=== PATIENT | male | born 1955 | race Caucasian/White ===

== ENCOUNTER 2019-11-27 17:03 | Emergency (ER) | payer OTHER ==
[2019-11-27] MEDS ORDERED: ONDANSETRON 4 MG/2 ML VIAL IVPUSH ONE (17:18)
[2019-11-27] MEDS ORDERED: SODIUM CHLORIDE 1,000 ML IV STA ×2 (17:18→18:59)
[2019-11-27] MEDS ORDERED: MECLIZINE HCL 25 MG TABLET (FP) PO ONE (17:19)
[2019-11-27] MEDS ORDERED: MECLIZINE HCL 25 MG TABLET (FP) ONE (17:22)
[2019-11-27] MEDS ORDERED: ONDANSETRON 4 MG/2 ML VIAL ONE (17:23)
[2019-11-27 17:43] VITALS: BP 142/86; PULSE 45; TEMP 98; BMI 20.9
[2019-11-27 17:56] LABS: BASO % 1.1 % (0-2.0); EOS % 1.9 % (0-4.5); HEMATOCRIT 39.8 % (35.4-49); HEMOGLOBIN 13.6 GM/dl (11.7-16.9); MCH 32.2 pg (25.7-33.7); MCHC 34.1 g/dl (32.0-35.9); MEAN CELL VOLUME 94.5 fl (80-96); MEAN PLT VOLUME 8.4 fl (7.5-11.1); MONO % 7.2 % (3.8-10.2); NEUT % 73.8 % (42.8-82.8); PLATELET COUNT 198 K/MM3 (134-434); RBC 4.22 M/mm3 (4.00-5.60); RDW 12.3 % (11.9-15.9)
[2019-11-27 18:04] LABS: ALBUMIN 3.9 g/dl (3.4-5.0); CALCIUM 9.2 mg/dl (8.5-10); CREATININE 0.7 mg/dl (0.55-1.3); POTASSIUM 3.7 mmol/L (3.5-5.1); TOT PROT 6.3 g/dl (6.4-8.2)
--- NOTE | 2019-11-27 18:08 | PDOC ---
Documentation entered by Chelsie Nicholson SCRIBE, acting as scribe for Mary Lee MD. Mary Lee MD: This documentation has been prepared by the Lyn mera Adrianna, SCRIBE, under my direction and personally reviewed by me in its entirety. I confirm that the documentation accurately reflects all work, treatment, procedures, and medical decision making performed by me. History of Present Illness - General Chief Complaint: Lightheaded Stated Complaint: VERTIGO Time Seen by Provider: 11/27/19 17:06 - History of Present Illness Initial Comments: 64 y.o male, PMH of vertigo and prostatitis (cipro), presents with dizziness since last night. Patient complains of sudden onset room-spinning dizziness that began last night. He notes the dizziness continued today upon waking up and has been persistent since. His symptoms are exacerbated with moving his head laterally (unaffected by moving his eyes), and the dizziness makes him feel nauseous. Patient notes he has had vertigo in the past, so he took meclizine today at 1 pm which typically alleviates his symptoms but it did not provide any relief today. He complains of an associated frontal MULLEN that radiates into his eyes, with photophobia which is new for him. Denies any identifiable triggers of vertigo. Patient notes he has been unable to get out of bed due to the persistent vertigo and MULLEN, so he came to the ED for further evaluation. Denies any SOB, chest pain, history of migraines, blurred vision, changes in vision, weakness, numbness, tingling, vomit. Allergies: NKA, NKDA Surgical History: Social History: Former smoker (quit >35 years ago). Denies toxic habits PCP: Dr. Hutchins Past History - Past Medical History Allergies/Adverse Reactions: Allergies Allergy/AdvReac Type Severity Reaction Status Date / Time No Known Allergies Allergy Verified 02/09/16 18:12 Home Medications: Ambulatory Orders Meclizine HCl [Antivert -] 25 mg PO QID PRN 11/27/19 Anemia: No Asthma: No Cancer: No Cardiac Disorders: No CVA: No COPD: No CHF: No Dementia: No Diabetes: No GI Disorders: No Disorders: Yes (HX PROSTATITIS) HTN: No Hypercholesterolemia: No Liver Disease: No Seizures: No Thyroid Disease: No Other medical history: VERTIGO - Surgical History Abdominal Surgery: No Appendectomy: No Cardiac Surgery: No Cholecystectomy: No Lung Surgery: No Neurologic Surgery: No Orthopedic Surgery: No - Immunization History Immunization Up to Date: Yes - Psycho Social/Smoking Cessation Hx Smoking Status: No Smoking History: Never smoked Have you smoked in the past 12 months: No Number of Cigarettes Smoked Daily: 40 If you are a former smoker, when did you quit?: 1982 Cigars Per Day: 0 Hx Alcohol Use: No Drug/Substance Use Hx: No Substance Use Type: None Hx Substance Use Treatment: No Review of Systems - Review of Systems Comments:: GENERAL/CONSTITUTIONAL: No fever or chills. No weakness. HEAD, EYES, EARS, NOSE AND THROAT: No change in vision. No ear pain or discharge. No sore throat. CARDIOVASCULAR: No chest pain or shortness of breath. RESPIRATORY: No cough, wheezing, or hemoptysis. GASTROINTESTINAL: +Nausea. No vomiting, diarrhea or constipation. GENITOURINARY: No dysuria, frequency, or change in urination. MUSCULOSKELETAL: No joint or muscle swelling or pain. No neck or back pain. SKIN: No rash NEUROLOGIC: +Frontal MULLEN. +Dizziness. +Vertigo. No loss of consciousness, or change in strength/sensation. ENDOCRINE: No increased thirst. No abnormal weight change. HEMATOLOGIC/LYMPHATIC: No anemia, easy bleeding, or history of blood clots. ALLERGIC/IMMUNOLOGIC: No hives or skin allergy. *Physical Exam - Vital Signs Last Vital Signs Temp Pulse Resp BP Pulse Ox 98.0 F 45 L 16 142/86 100 11/27/19 17:04 11/27/19 17:04 11/27/19 17:04 11/27/19 17:04 11/27/19 17:04 - Physical Exam GENERAL: +In a supine position in a dark room, avoiding movements of the head. Awake, alert, and fully oriented, in no acute distress HEAD: No signs of trauma EYES: PERRLA, EOMI, sclera anicteric, conjunctiva clear ENT: Auricles normal inspection, hearing grossly normal, nares patent, oropharynx clear without exudates. Moist mucosa NECK: Normal ROM, supple, no lymphadenopathy, JVD, or masses LUNGS: Breath sounds equal, clear to auscultation bilaterally. No wheezes, and no crackles HEART: Regular rate and rhythm, normal S1 and S2, no murmurs, rubs or gallops ABDOMEN: Soft, nontender, normoactive bowel sounds. No guarding, no rebound. No masses EXTREMITIES: Normal range of motion, no edema. No clubbing or cyanosis. No cords, erythema, or tenderness NEUROLOGICAL: Cranial nerves II through XII grossly intact. Normal speech, normal gait SKIN: Warm, Dry, normal turgor, no rashes or lesions noted. ED Treatment Course - LABORATORY CBC & Chemistry Diagram: 11/27/19 17:30 11/27/19 17:30 - RADIOLOGY Radiograph Interpretation: EXAM: HEAD CT WITHOUT CONTRAST FINDINGS: There is no convincing CT evidence of acute cortical infarction, acute intracranial hemorrhage, hydrocephalus or pathological extra-axial collection. No evidence of acute sinusitis or mastoiditis. No unusual high density involving the superior sagittal sinus to suggest thrombosis. Reported By: Ramiro Aguilar MD 11/27/2019 18:37 EST Medical Decision Making - Medical Decision Making 11/27/19 19:00 Pt signed out to Dr. Wisdom at shift change. He took meclizine 25 at home, was given an additional 25 mg in ED without relief. Received valium, felt a bit lightheaded afterwards. Vertigo has improved significantly, he is now able to move head side to side. Receiving IV fluids now, reassess. DC home if and when improved. Discharge - Discharge Information Problems reviewed: Yes Clinical Impression/Diagnosis: Vertigo Condition: Stable Disposition: HOME - Follow up/Referral Referrals: Anthony Hutchins MD [Primary Care Provider] - - Patient Discharge Instructions Additional Instructions: You can take your meclizine 1 tablet as often as every 4 hours for the next 24 hours to help keep some meclizine in your system. After 24 hours take the meclizine as needed. If you still are having any vertigo on Friday follow-up with your primary care doctor. Return to the emergency department immediately with ANY new, persistent or worsening symptoms. Continue any medications as previously prescribed by your physician. You should follow up with your primary doctor as soon as possible regarding today's emergency department visit. . Please make sure your doctor reviews the results of your emergency evaluation. Thank you for coming to the Emergency Department today for your care. It was a pleasure to see you today. Please note that your evaluation is INCOMPLETE until you follow-up with your doctor. - Post Discharge Activity
[2019-11-27] MEDS ORDERED: diazePAM 5 MG TABLET PO ONE (18:26)
[2019-11-27] MEDS ORDERED: diazePAM 5 MG TABLET ONE (18:29)
--- NOTE | 2019-11-27 19:32 | PDOC ---
*Physical Exam - Vital Signs Last Vital Signs Temp Pulse Resp BP Pulse Ox 98.0 F 45 L 16 142/86 100 11/27/19 17:04 11/27/19 17:04 11/27/19 17:04 11/27/19 17:04 11/27/19 17:04 ED Treatment Course - LABORATORY CBC & Chemistry Diagram: 11/27/19 17:30 11/27/19 17:30 - ADDITIONAL ORDERS Additional order review: Laboratory Results 11/27/19 17:30 Sodium 135 L Potassium 3.7 Chloride 104 Carbon Dioxide 27 Anion Gap 4 L BUN 11.0 Creatinine 0.7 Est GFR (CKD-EPI)AfAm 116.40 Est GFR (CKD-EPI)NonAf 100.43 Random Glucose 95 Calcium 9.2 Total Bilirubin 1.0 AST 22 ALT 13 Alkaline Phosphatase 38 L Total Protein 6.3 L Albumin 3.9 11/27/19 17:30 RBC 4.22 MCV 94.5 MCHC 34.1 RDW 12.3 MPV 8.4 Neutrophils % 73.8 Lymphocytes % 16.0 D Monocytes % 7.2 D Eosinophils % 1.9 Basophils % 1.1 - Medications Given in the ED: ED Medications Discontinued Medications Generic Name Dose Route Start Last Admin Trade Name Freq PRN Reason Stop Dose Admin Diazepam 5 mg 11/27/19 18:26 11/27/19 18:30 Valium - PO 11/27/19 18:27 5 mg ONCE ONE Administration Sodium Chloride 1,000 mls @ 1,000 mls/hr 11/27/19 17:18 11/27/19 17:30 Normal Saline - IV 11/27/19 18:17 1,000 mls/hr ASDIR STA Administration Meclizine HCl 25 mg 11/27/19 17:19 11/27/19 17:20 Antivert - PO 11/27/19 17:20 25 mg ONCE ONE Administration Ondansetron HCl 4 mg 11/27/19 17:18 11/27/19 17:30 Zofran Injection IVPUSH 11/27/19 17:19 4 mg ONCE ONE Administration ED Progress Note - Progress Note Progress Note: 11/27/19 19:31 This is a 64-year-old male whose care was transferred to dc from Dr. Lee at 1900 hrs. Patient has a history of vertigo and comes in complaining of vertigo. Patient had taken some meclizine several hours prior to arrival and was given more meclizine and Valium here in the ED. Patient had a head CT that was pending at the time of signout however head CT is now available and was read by imaging on-call. Head CT shows no acute intracranial pathology. Patient was advised to continue to take his meclizine and follow-up with his primary care doctor on Friday if not improved. 11/27/19 19:34 Reevaluation set patient said he is feeling much better and improved. Discharge - Discharge Information Problems reviewed: Yes Clinical Impression/Diagnosis: Vertigo Condition: Stable Disposition: HOME - Admission No - Follow up/Referral Referrals: Anthony Hutchins MD [Primary Care Provider] - - Patient Discharge Instructions Additional Instructions: You can take your meclizine 1 tablet as often as every 4 hours for the next 24 hours to help keep some meclizine in your system. After 24 hours take the meclizine as needed. If you still are having any vertigo on Friday follow-up with your primary care doctor. Return to the emergency department immediately with ANY new, persistent or worsening symptoms. Continue any medications as previously prescribed by your physician. You should follow up with your primary doctor as soon as possible regarding today's emergency department visit. . Please make sure your doctor reviews the results of your emergency evaluation. Thank you for coming to the Emergency Department today for your care. It was a pleasure to see you today. Please note that your evaluation is INCOMPLETE until you follow-up with your doctor. - Post Discharge Activity
== END 2019-11-27 19:42 | disposition home or self-care (01) ==
LOC: FER 17:03
PROC: 3E0337Z Introduction of Electrolytic and Water Balance Substance into Peripheral Vein, Percutaneous Approach (ICD-10-PCS; principal; 2019-11-27)
PROC: 3E033GC Introduction of Other Therapeutic Substance into Peripheral Vein, Percutaneous Approach (ICD-10-PCS; 2019-11-27)
DX: R42 Dizziness and giddiness (principal); Z87.891 Personal history of nicotine dependence
CPT/HCPCS: 36415; 70450-TC; 80053; 85025; 99285-25; J7030

== ENCOUNTER → 2020-04-19 | Day surgery (SDC) | payer OTHER ==
[~2020-04-19] MED LIST: LIDOCAINE HCL 1%, 10 MG/ML (20ML VIAL) ONE; methylPREDNISolone ACET (DEPO) 40 MG/1 ML VIAL ONE
[2020-04-19 11:30] LABS: BASO % 1.9 % (0-2.0); EOS % 3.3 % (0-4.5); HEMATOCRIT 37.8 % (35.4-49); HEMOGLOBIN 12.9 GM/dL (11.7-16.9); LYMPH % 27.7 % (8-40); MCH 31.9 pg (25.7-33.7); MEAN CELL VOLUME 93.7 fl (80-96); MEAN PLT VOLUME 8.4 fl (7.5-11.1); MONO % 10.3 % (3.8-10.2); NEUT % 56.8 % (42.8-82.8); PLATELET COUNT 192 K/MM3 (134-434); RBC 4.03 M/mm3 (4.00-5.60); RDW 12.4 % (11.9-15.9); WHITE BLOOD COUNT 3.1 K/mm3 (4.0-10.0)
[2020-04-19 11:36] LABS: INR 1.03 (0.83-1.09); PROTHROMBIN TIME (PATIENT) 12.1 SEC (9.7-13.0)
== END | disposition home or self-care (01) ==
LOC: JRADIR 10:02
PROVIDERS: ATTEND Orthopaedic Surgery Sports Medicine
PROC: 3E0U33Z Introduction of Anti-inflammatory into Joints, Percutaneous Approach (ICD-10-PCS; principal; 2020-04-19)
PROC: 3E0U3BZ Introduction of Anesthetic Agent into Joints, Percutaneous Approach (ICD-10-PCS; 2020-04-19)
DX: M16.12 Unilateral primary osteoarthritis, left hip (principal); M25.552 Pain in left hip
CPT/HCPCS: 27093; 36415; 73525-TC-FY; 77002-TC-FY; 85025; 85610

== ENCOUNTER 2021-11-13 08:24 | Emergency (ER) | payer OTHER ==
[2021-11-13] MEDS ORDERED: ACETAMINOPHEN 500 MG TABLET (FP) PO ONE (08:32)
[2021-11-13 08:33] VITALS: TEMP 97.8; BMI 21.9
[2021-11-13 08:38] VITALS: BP 107/57; PULSE 42
[2021-11-13] MEDS ORDERED: ACETAMINOPHEN 500 MG TABLET (FP) ONE (08:39)
== END 2021-11-13 10:02 | disposition home or self-care (01) ==
LOC: FER 08:24
DX: S52.501A Unspecified fracture of the lower end of right radius, initial encounter for closed fracture (principal); W19.XXXA Unspecified fall, initial encounter; Y92.9 Unspecified place or not applicable
CPT/HCPCS: 73110-TC-RT-FY; 73130-TC-RT-FY; 93005; 99284-25